=== PATIENT | female | born 1980 | race Caucasian/White ===

== ENCOUNTER 2017-07-11 18:15 | Emergency (ER) | payer BC ==
[2017-07-11] MEDS ORDERED: Acetaminophen/oxyCODONE 325-5 MG Tab PO ONE ×2 (18:16→19:56)
[2017-07-11] MEDS ORDERED: Cyclobenzaprine 10 MG Tab PO ONE ×2 (18:16→19:56)
--- NOTE | 2017-07-11 19:22 | EDM.PDOC ---
ED HPI GENERAL MEDICAL PROBLEM - General Chief Complaint: Lower Extremity Injury/Pain Stated Complaint: [id number] SUDDEN HIP PAIN Time Seen by Provider: 07/11/17 19:30 Source of Information: Reports: Patient History Limitations: Reports: No Limitations - History of Present Illness INITIAL COMMENTS - FREE TEXT/NARRATIVE: C/O left hip pain, denies injury noticed first yesterday while getting out of bed. No prior remote hip or back pain or injury. Pain increasing Difficult to walk, Describes as ache while laying in bed, sharp when walking or stepping forward. some radiation to groin and buttock on left. No numbness or weakness. Slight nausea at times from pain. No loss of control of bowel or bladder. Left Hip Pain Score (Numeric/FACES): 3 - Related Data Allergies Allergy/AdvReac Type Severity Reaction Status Date / Time No Known Allergies Allergy Verified 07/11/17 18:37 Home Meds: Home Meds . 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: - Infectious Disease History Infectious Disease History: Reports: Chicken Pox, Shingles - Past Surgical History Cardiovascular Surgical History: Reports: Varicose Female Surgical History: Reports: Breast Reduction Social & Family History - Family History Family Medical History: Noncontributory - Tobacco Use Smoking Status *Q: Current Every Day Smoker Years of Tobacco use: 15 Packs/Tins Daily: 1 Used Tobacco, but Quit: No - Caffeine Use Caffeine Use: Reports: Coffee - Recreational Drug Use Recreational Drug Use: No Review of Systems - Review of Systems Review Of Systems: ROS reveals no pertinent complaints other than HPI. ED EXAM, GENERAL - Physical Exam Exam: See Below Exam Limited By: No Limitations General Appearance: Alert, Moderate Distress (with movment) Eye Exam: Bilateral Eye: EOMI Ears: Normal External Exam Nose: Normal Inspection Throat/Mouth: Normal Inspection, Normal Voice Head: Atraumatic, Normocephalic Neck: Normal Inspection, Non-Tender Respiratory/Chest: No Respiratory Distress Cardiovascular: Normal Peripheral Pulses, Regular Rate, Rhythm GI/Abdominal: Normal Bowel Sounds, Soft, Non-Tender. No: Distended, Guarding, Hernia Back Exam: Normal Inspection. No: Paraspinal Tenderness, Vertebral Tenderness Extremities: Limited Range of Motion (left hip increase pain with flexion internal or external rotation. mild tenderness with deep palpation to hip. ). No: Joint Swelling, Increased Warmth Neurological: Alert, Oriented, Normal Cognition Psychiatric: Normal Affect, Normal Mood Skin Exam: Warm, Dry, Intact, Normal Color Course - Vital Signs Last Recorded V/S: Last Vital Signs Temp 98.8 F 07/11/17 18:46 Pulse 108 H 07/11/17 21:36 Resp 18 07/11/17 21:36 BP 123/82 07/11/17 21:36 Pulse Ox 96 07/11/17 21:36 - Orders/Labs/Meds Labs: Laboratory Tests 07/11/17 Range/Units 20:00 HCG, Qual Negative Meds: Medications Discontinued Medications Generic Name Dose Route Start Last Admin Trade Name Freq PRN Reason Stop Dose Admin Cyclobenzaprine HCl 10 mg 07/11/17 19:56 07/11/17 20:08 Flexeril PO 07/11/17 19:57 10 mg ONETIME ONE Administration Cyclobenzaprine HCl Confirm 07/11/17 21:22 07/11/17 23:55 Flexeril Administered 07/11/17 21:23 Not Given Dose 40 mg .ROUTE .STK-MED ONE Oxycodone/Acetaminophen 1 tab 07/11/17 19:56 07/11/17 20:07 Percocet 325-5 Mg PO 07/11/17 19:57 1 tab ONETIME ONE Administration Oxycodone/Acetaminophen Confirm 07/11/17 21:22 07/11/17 23:56 Percocet 325-5 Mg Administered 07/11/17 21:23 Not Given Dose 5 tab .ROUTE .STK-MED ONE - Radiology Interpretation Free Text/Narrative:: xray left hip negative. Departure - Departure Time of Disposition: 21:29 Disposition: Home, Self-Care 01 Condition: Good Clinical Impression: Left hip pain - Discharge Information Instructions: Musculoskeletal Pain Referrals: Maricel Guzman PA-C [Primary Care Provider] - Forms: ED Department Discharge Additional Instructions: flexeril 10mg one every 8 hours as needed for spasm percocet 5/325 one every 6 hours as needed for severe pain Ibuprofen 600mg one every 6 hours as needed for moderate pain, may alternate follow up in clinic on Wednesday
[2017-07-11] MEDS ORDERED: Acetaminophen/oxyCODONE 325-5 MG Tab ONE (21:22)
[2017-07-11] MEDS ORDERED: Cyclobenzaprine 10 MG Tab ONE (21:22)
== END 2017-07-11 21:38 | disposition home or self-care (01) ==
LOC: DL.ED 18:15
DX: M25.552 Pain in left hip (principal); F17.210 Nicotine dependence, cigarettes, uncomplicated
CPT/HCPCS: 36415; 73502; 84703; 99283; A9270

== ENCOUNTER 2020-08-11 21:37 | Emergency (ER) | payer BC ==
[2020-08-11] MEDS ORDERED: Bacitracin Oint 1 GM U/D Packet TOP ONE (22:05)
[2020-08-11] MEDS ORDERED: Amoxicillin/Clavulanate K 500-125 MG Tab PO ONE (22:06)
--- NOTE | 2020-08-11 22:11 | EDM.PDOC ---
ED HPI GENERAL MEDICAL PROBLEM - General Chief Complaint: Bite:Animal, Insect Stated Complaint: MINOR DOG BITE Time Seen by Provider: 08/11/20 22:00 Source of Information: Reports: Patient History Limitations: Reports: No Limitations - History of Present Illness INITIAL COMMENTS - FREE TEXT/NARRATIVE: This 40 yo female patient reports due to a dog bite to her right distal ring finger. Onset: Today Duration: Minutes: Location: Reports: Upper Extremity, Right Quality: Reports: Ache, Dull Severity: Mild Improves with: Reports: None Worsens with: Reports: None Context: Reports: Other Associated Symptoms: Reports: No Other Symptoms Right Finger-Ring Pain Score (Numeric/FACES): 4 - Related Data Home Meds: Home Meds . 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 ED EXAM, ANIMAL BITE - Physical Exam Exam: See Below Exam Limited By: No Limitations General Appearance: Alert, WD/WN, No Apparent Distress Eye Exam: Bilateral Eye: EOMI, Normal Inspection Ears: Normal External Exam, Hearing Grossly Normal Nose: Normal Inspection, No Blood Throat/Mouth: Normal Lips, Normal Teeth, Normal Voice, No Airway Compromise Head: Atraumatic, Normocephalic Neck: Full Range of Motion Respiratory/Chest: No Respiratory Distress, No Accessory Muscle Use Cardiovascular: Normal Peripheral Pulses, Regular Rate, Rhythm (Female) Exam: Deferred Rectal (Female) Exam: Deferred Extremities: Arm Pain (Right distal ring finger laceration/dog bite (dog is up to date on immunizations)) Neurological: Alert, Oriented, CN II-XII Intact, Normal Cognition, Normal Gait, Normal Reflexes, No Motor/Sensory Deficits Psychiatric: Normal Affect, Normal Mood Skin Exam: Warm/Dry, DRY, I, Normal Color, NR Lymphatic: No Adenopathy Course - Vital Signs Last Recorded V/S: Last Vital Signs Temp 97.5 F 08/11/20 21:55 Pulse 100 08/11/20 21:55 Resp 20 08/11/20 21:55 BP 140/87 08/11/20 21:55 Pulse Ox 100 08/11/20 21:55 - Orders/Labs/Meds Meds: Medications Discontinued Medications Generic Name Dose Route Start Last Admin Trade Name Don PRN Reason Stop Dose Admin Amoxicillin/Clavulanate Potassium 1 tab 08/11/20 22:06 Amoxicillin/Clavulanate K 500-125 Mg Tab PO 08/11/20 22:07 ONETIME ONE Bacitracin 1 dose 08/11/20 22:05 Bacitracin Oint 1 Gm U/D Packet TOP 08/11/20 22:06 ONETIME ONE Departure - Departure Time of Disposition: 22:08 Disposition: Home, Self-Care 01 Condition: Fair Clinical Impression: Open wound of right ring finger due to dog bite - Discharge Information *PRESCRIPTION DRUG MONITORING PROGRAM REVIEWED*: Not Applicable *COPY OF PRESCRIPTION DRUG MONITORING REPORT IN PATIENT ASHIA: Not Applicable Instructions: Animal Bite, Adult, [id number] Forms: ED Department Discharge Care Plan Goals: The patient was advised of the examination results during the visit. The patient's wound was cleaned and dressed with antibiotic ointment during the visit. The patient was given an oral dose of Augmentin (500/125) while in the ED. The patient was discharged with a script for Augmentin (500/125) #14 to take 1 by mouth 2 times per day for 7 days. If the patient has any additional symptoms or concerns, the patient should either return to the emergency department or visit her primary care facility. Sepsis Event Note (ED) - Evaluation Sepsis Screening Result: No Definite Risk - Focused Exam Vital Signs: Vital Signs Temp Pulse Resp BP Pulse Ox 08/11/20 21:55 97.5 F 100 20 140/87 100
== END 2020-08-11 22:25 | disposition home or self-care (01) ==
LOC: DL.ED 21:37
DX: S61.254A Open bite of right ring finger without damage to nail, initial encounter (principal); W54.0XXA Bitten by dog, initial encounter
CPT/HCPCS: 99283; A9270-GY